=== PATIENT | female | born 1965 | race Caucasian/White ===

== ENCOUNTER 2020-08-18 14:42 | Observation (INO) | payer BC, OTHER ==
[~2020-08-18] VITALS: Ht 154.9 cm; Wt 147.0 kg
[~2020-08-18 14:42] MED LIST: MORPHINE SULFATE 4 MG/ML VIAL. IV PRN
--- NOTE | 2020-08-18 15:26 | ED.ADGEN ---
General Adult EDM: Chief Complaint: SHORTNESS OF BREATH HPI: HPI: Patient is a 55 year old female, brought to the emergency department by EMS with complaints of chest pain for the last 3 weeks and intermittent shortness of breath for the last week. Patient also complains of pain in her right ear, she states that there is a growth in her ear that cannot be removed. Patient reports frustrations with the facility where she currently resides, she states that she has to take off her oxygen and going to the hallway to get anyone to come to her. Patient states that she has had a growth in her ear that they refused to do anything about. She denies any fever, cough, body aches, chills, sore throat, headaches, dizziness, or syncope. Patient reports that the chest pain radiates to her left shoulder at times she currently denies any chest pain. She reports that the pain in her right ear is a 10 out of 10 on the pain scale she states that it hurts worse if the growth is palpated. 1515- Per conversation with Tatum Orozco RN at [facility] pt has been complaining of R ear pain x 1 week. She was evaluated and prescribed debrox by [facility] at the shelter yesterday. Pt used her own cell phone to call EMS today and complained of CP for one week to EMS. Per Tatum the patient had not reported CP until EMS was called. Tatum CLARK will fax over pt's medication list, she is currently taking 20 mg of xarelto once daily no other blood thinners. Review of Systems: Review of Systems: Complete ROS is negative unless otherwise noted in HPI. Current Medications: Current Medications Medications (Trade) Dose Ordered Sig/[facility] Start Time Stop Time Status Last Admin Dose Admin Morphine Sulfate (Morphine Sulfate) 2 mg PRN Q2HR PRN 08/18/20 04:00 08/19/20 03:59 08/18/20 18:30 2 MG Ondansetron HCl (Zofran) 4 mg 1X ONCE 08/18/20 16:30 08/18/20 16:31 DC 08/18/20 18:03 4 MG Allergies: Allergies: Allergies Coded Allergies Type Severity Reaction Last Updated Verified lisinopril Allergy Unknown Swelling 08/18/20 Yes Physical Exam: PE: See Above Constitutional: Well developed, well nourished, no acute distress, non-toxic appearance, morbidly obese. [] HENT: Normocephalic, atraumatic, bilateral external ears normal, oropharynx moist, no oral exudates, nose normal; cerumen impaction of the right ear canal. [] Eyes: PERRLA, EOMI, conjunctiva normal, no discharge. [] Neck: Normal range of motion, no stridor. [] Cardiovascular:Heart rate regular rhythm Lungs & Thorax: Respirations even and unlabored, no retractions, no respiratory distress Abdomen: soft, no tenderness Skin: Warm, dry, no erythema, no rash. [] Extremities: BLE: Lymphedema present bilaterally, no cyanosis, ROM intact Neurologic: Alert and oriented X 3, normal motor function, normal sensory function, no focal deficits noted. [] Psychologic: Affect normal, judgement normal, mood normal. [] Current Patient Data: Labs: Laboratory Tests Test 08/18/20 15:17 08/18/20 15:20 Urine Collection Type Unknown Urine Color Straw Urine Clarity Clear Urine pH 7.5 (<5.0-8.0) Urine Specific [place] 1.010 (1.000-1.030) Urine Protein Negative mg/dL (NEG-TRACE) Urine Glucose (UA) Negative mg/dL (NEG) Urine Ketones (Stick) Negative mg/dL (NEG) Urine Blood Negative (NEG) Urine Nitrite Negative (NEG) Urine Bilirubin Negative (NEG) Urine Urobilinogen Dipstick 0.2 mg/dL (0.2 mg/dL) Urine Leukocyte Esterase Trace (NEG) Urine RBC 0 /HPF (0-2) Urine WBC Occ /HPF (0-4) Urine Squamous Epithelial Cells Many /LPF Urine Bacteria Moderate /HPF (0-FEW) White Blood Count 6.0 x10^3/uL (4.0-11.0) Red Blood Count 3.74 x10^6/uL (3.50-5.40) Hemoglobin 10.5 g/dL (12.0-15.5) L Hematocrit 32.3 % (36.0-47.0) L Mean Corpuscular Volume 86 fL (79-100) Mean Corpuscular Hemoglobin 28 pg (25-35) Mean Corpuscular Hemoglobin Concent 33 g/dL (31-37) Red Cell Distribution Width 16.2 % (11.5-14.5) H Platelet Count 265 x10^3/uL (140-400) Neutrophils (%) (Auto) 72 % (31-73) Lymphocytes (%) (Auto) 19 % (24-48) L Monocytes (%) (Auto) 8 % (0-9) Eosinophils (%) (Auto) 2 % (0-3) Basophils (%) (Auto) 0 % (0-3) Neutrophils # (Auto) 4.3 x10^3/uL (1.8-7.7) Lymphocytes # (Auto) 1.1 x10^3/uL (1.0-4.8) Monocytes # (Auto) 0.4 x10^3/uL (0.0-1.1) Eosinophils # (Auto) 0.1 x10^3/uL (0.0-0.7) Basophils # (Auto) 0.0 x10^3/uL (0.0-0.2) Sodium Level 141 mmol/L (136-145) Potassium Level 3.9 mmol/L (3.5-5.1) Chloride Level 98 mmol/L (98-107) Carbon Dioxide Level 40 mmol/L (21-32) H Anion Gap 3 (6-14) L Blood Urea Nitrogen 16 mg/dL (7-20) Creatinine 0.9 mg/dL (0.6-1.0) Estimated GFR (Cockcroft-Gault) 64.8 BUN/Creatinine Ratio 18 (6-20) Glucose Level 131 mg/dL (70-99) H Calcium Level 9.1 mg/dL (8.5-10.1) Magnesium Level 2.0 mg/dL (1.8-2.4) Total Bilirubin 0.3 mg/dL (0.2-1.0) Aspartate Amino Transferase (AST) 12 U/L (15-37) L Alanine Aminotransferase (ALT) 21 U/L (14-59) Alkaline Phosphatase 96 U/L (46-116) Creatine Kinase 44 U/L (26-192) Creatine Kinase MB (Mass) < 0.5 ng/mL (0.0-3.6) Creatine Kinase MB Relative Index % (0-4) Troponin I Quantitative < 0.017 ng/mL (0.000-0.055) OB-Jzx-U-Type Natriuretic Peptide 613 pg/mL (0-124) H Total Protein 8.7 g/dL (6.4-8.2) H Albumin 3.5 g/dL (3.4-5.0) Albumin/Globulin Ratio 0.7 (1.0-1.7) L Lipase 87 U/L (73-393) Laboratory Tests 08/18/20 15:20 Laboratory Tests 08/18/20 15:20 Vital Signs: Vital Signs Date Time Temp Pulse Resp B/P (MAP) Pulse Ox O2 Delivery O2 Flow Rate FiO2 08/18/20 14:45 97.6 71 20 170/74 (106) 97 Nasal Cannula 2.0 97.6 EKG: EK-sinus rhythm, rate 69, T wave abnormality in the high lateral leads, prolonged QT, no STEMI, read by Dr. Gary [] Heart Score: C/O Chest Pain: Yes HEART Score for Chest Pain: HEART Score for Chest Pain Response (Comments) Value History Slighlty/Non-Suspicious 0 ECG Nonspecific Repolarizatio 1 Age >45 - < 65 1 Risk Factors >3 Risk Factors or Hx CAD 2 Troponin < Normal Limit 0 Total 4 Risk Factors: Risk Factors: DM, Current or recent (<one month) smoker, HTN, HLP, family history of CAD, obesity. Risk Scores: Score 0 - 3: 2.5% MACE over next 6 weeks - Discharge Home Score 4 - 6: 20.3% MACE over next 6 weeks - Admit for Clinical Observation Score 7 - 10: 72.7% MACE over next 6 weeks - Early Invasive Strategies Radiology/Procedures: Radiology/Procedures: PROCEDURE: CHEST AP ONLY Exam Date: 08/18/2020 3:45 PM XR CHEST 1V Indication: Reason: chest pain / Spl. Instructions: / History: FINDINGS/ IMPRESSION: The cardiac silhouette is enlarged. Pulmonary vasculature prominence and mildly increased interstitial markings suggest mild congestion. Left basilar opacity is likely secondary to prominent pericardial fat pad, the left basilar atelectasis and or infiltrate is not excluded. There is no appreciable pleural effusion or pneumothorax. Electronically signed by: Frankie Simons MD (08/18/2020 4:11 PM) [facility] Course & Med Decision Making: Course & Med Decision Making Pertinent Labs and Imaging studies reviewed. (See chart for details) [id number] with Dr. Dallas who is the admitting physician, and care was assumed following discussion of patient. Will admit patient as observation for chest pain or shortness of breath. Will initiate the chest pain order set. Patient's vital signs stable. Patient remains afebrile, appears nontoxic, respirations even and unlabored. Patient will be admitted to the cvc floor. Patient's case and plan of care also discussed with Dr. Gary [] Tanvi Disclaimer: Tanvi Disclaimer: This electronic medical record was generated, in whole or in part, using a voice recognition dictation system. Departure Departure Impression: Primary Impression: Chest pain Additional Impressions: Shortness of breath Impacted cerumen of right ear Disposition: ADMITTED INPT THIS HOSP Admitting Physician: YAJAIRA PENDLETON) Condition: STABLE Problem Qualifiers Primary Impression: Chest pain Chest pain type: unspecified Qualified Codes: R07.9 - Chest pain, unspecified DAQUAN GIBBONS APRN Aug 18, 2020 15:26
[2020-08-18 15:28] LABS: BILIRUBIN,URINE NEGATIVE (NEG); CLARITY,URINE CLEAR; NITRITE,URINE NEGATIVE (NEG); PH,URINE 7.5 (<5.0-8.0); PROTEIN,URINE NEGATIVE (NEG-TRACE); UROBILINOGEN,URINE 0.2 mg/dL (0.2 mg/dL)
[2020-08-18 15:38] LABS: BACTERIA,URINE MODERATE /HPF (0-FEW)
[2020-08-18 15:39] LABS: RBC,URINE 0 /HPF (0-2); WBC,URINE OCC /HPF (0-4)
[2020-08-18 15:40] LABS: COLOR,URINE STRAW
[2020-08-18 15:49] LABS: BASO % 0 % (0-3); EOS # 0.1 x10^3/uL (0.0-0.7); EOS % 2 % (0-3); HEMATOCRIT 32.3 % (36.0-47.0); HEMOGLOBIN 10.5 g/dL (12.0-15.5); LYMPH # 1.1 x10^3/uL (1.0-4.8); LYMPH % 19 % (24-48); MEAN CORPUSCULAR HEMOGLOBIN 28 pg (25-35); MEAN CORPUSCULAR HGB CONC 33 g/dL (31-37); MEAN CORPUSCULAR VOLUME 86 fL (79-100); MONO # 0.4 x10^3/uL (0.0-1.1); MONO % 8 % (0-9); NEUT # 4.3 x10^3/uL (1.8-7.7); NEUT % 72 % (31-73); PLATELET COUNT 265 x10^3/uL (140-400); RED BLOOD COUNT 3.74 x10^6/uL (3.50-5.40); RED CELL DISTRIBUTION WIDTH 16.2 % (11.5-14.5)
[2020-08-18 15:56] LABS: CALCIUM 9.1 mg/dL (8.5-10.1); CREATININE 0.9 mg/dL (0.6-1.0); GFR 64.8; POTASSIUM 3.9 mmol/L (3.5-5.1)
[2020-08-18 16:02] LABS: ALBUMIN 3.5 g/dL (3.4-5.0); ALBUMIN/GLOBULIN RATIO 0.7 (1.0-1.7); TOTAL BILIRUBIN 0.3 mg/dL (0.2-1.0); TOTAL PROTEIN 8.7 g/dL (6.4-8.2)
[2020-08-18 16:14] LABS: CREATINE KINASE 44 U/L (26-192)
--- NOTE | 2020-08-18 16:14 | RAD ---
Exam Date: 08/18/2020 3:45 PM XR CHEST 1V Indication: Reason: chest pain / Spl. Instructions: / History: FINDINGS/ IMPRESSION: The cardiac silhouette is enlarged. Pulmonary vasculature prominence and mildly increased interstitia l markings suggest mild congestion. Left basilar opacity is likely secondary to prominent pericardial fat pad, the left basilar atelectasis and or infiltrate is not excluded. There is no appreciable pleural effusion or pneumothorax. Electronically signed by: Frankie Simons MD (08/18/2020 4:11 PM) [facility]
[2020-08-18] MEDS ORDERED: ONDANSETRON PF 4 MG/2 ML VIAL. IV ONE (16:30)
[2020-08-18] MEDS ORDERED: MORPHINE SULFATE 4 MG/ML VIAL. IV ONE (16:30)
--- NOTE | 2020-08-18 16:52 | PDOC1 ---
History and Physical Date of Service: DOS: DATE: 08/18/20 TIME: 16:50 Chief Complaint: Chief Complain: Chest pressure and shortness of breath History of Present Illness: HPI: Patient is a 55-year-old female with past medical history of diabetes mellitus, CHF with unknown EF, COPD, morbid obesity who presents to the ED after she called from her cell phone EMS today because she was having chest pain as she felt the staff was ignoring her. She does reside at [facility] and rehab. She also has been complaining of right ear pain for 1 week in which she was given eardrop. In the ED patient did have a cerumen impaction removal that was completed. According to the patient she is taking Xarelto, Metformin, glyburide, Coreg and atorvastatin. She describes the chest pain as sharp in nature and last for about 5 minutes at a time and does travel to her left arm in which she also complains of left arm pain. She does describe shortness of breath and a cough that is nonproductive. Denies fevers, nausea vomiting, loss of appetite, weight loss, abdominal pain, diarrhea or bloody stools. Past Medical/Surgical History: PMH/PSH: Past medical history: Diabetes, COPD, CHF Past surgical history: Unknown Allergies: Allergies: Coded Allergies: lisinopril (Verified Allergy, Unknown, Swelling, 08/18/20) Family History: Family History: Reviewed with no relevant findings Social History: Social History: Former smoker. Currently denies any alcohol or drug abuse Current Medications: Current Medications Current Medications Ondansetron HCl (Zofran) 4 mg 1X ONCE IV ; Start 08/18/20 at 16:30; Stop at 16:31; Status DC Morphine Sulfate (Morphine Sulfate) 4 mg 1X ONCE IV ; Start 08/18/20 at 16:30; Stop 08/18/20 at 16:31; Status DC ROS: Review of Systems Review of System REVIEW OF SYSTEMS: GENERAL: Denies weakness SKIN: No bruising, hair changes or rashes. EYES: No blurred, double or loss of vision. NOSE AND THROAT: No history of nosebleeds, hoarseness or sore throat. HEART: No history of palpitations, chest pain or shortness of breath on exertion. LUNGS: Denies cough, hemoptysis, wheezing or shortness of breath. GASTROINTESTINAL: Denies changes in appetite, nausea, vomiting, diarrhea or constipation. GENITOURINARY: No history of frequency, urgency, hesitancy or nocturia. NEUROLOGIC: Denies history of numbness, tingling, or tremor. PSYCHIATRIC: No history of panic, anxiety or depression. ENDOCRINE: No history of heat or cold intolerance, polyuria or polydipsia. EXTREMITIES: Denies joint pain, pain on walking or stiffness. Physical Exam: Physcial Exam: GEN: No apparent distress. Alert and oriented HEENT: Normal cephalic, atraumatic, external auditory canals are patent EYES: Extraocular muscles are intact, pupil are equally round and reactive to light and accommodation MUSCULOSKELETAL: Well developed , well nourished, good range of motion ENDOCRINE: No thyromegaly was palpated LYMPHATICS: No cervical chain or axillary nodes were noted HEMATOPOIETIC: No bruising NECK: Supple, no JVD, no thyromegaly was noted LUNGS: Expiratory wheezing bilaterally HEART: RRR, S!, S2 present. Peripheral pulses intact, no obvious murmurs noted ABDOMEN: Soft, nontender. Positive bowel sounds, no organomegaly, normal bowel sounds EXTREMITIES: Bilateral nonpitting edema. Bilateral lower extremity lymphedema NEUROLOGIC: Normal speech and tone. A&O x 3, moves all extremities, no obvious focal deficits PSYCHIATRIC: Normal affect, normal mood. Stable SKIN: No ulcerations or rashes, good skin turgor, no jaundice VASCULAR: Good capillary refill, neurovascular bundle appears to be intact Labs: Labs: Laboratory Tests Test 08/18/20 15:17 08/18/20 15:20 Urine Collection Type Unknown Urine Color Straw Urine Clarity Clear Urine pH 7.5 (<5.0-8.0) Urine Specific [place] 1.010 (1.000-1.030) Urine Protein Negative mg/dL (NEG-TRACE) Urine Glucose (UA) Negative mg/dL (NEG) Urine Ketones (Stick) Negative mg/dL (NEG) Urine Blood Negative (NEG) Urine Nitrite Negative (NEG) Urine Bilirubin Negative (NEG) Urine Urobilinogen Dipstick 0.2 mg/dL (0.2 mg/dL) Urine Leukocyte Esterase Trace (NEG) Urine RBC 0 /HPF (0-2) Urine WBC Occ /HPF (0-4) Urine Squamous Epithelial Cells Many /LPF Urine Bacteria Moderate /HPF (0-FEW) White Blood Count 6.0 x10^3/uL (4.0-11.0) Red Blood Count 3.74 x10^6/uL (3.50-5.40) Hemoglobin 10.5 g/dL (12.0-15.5) Hematocrit 32.3 % (36.0-47.0) Mean Corpuscular Volume 86 fL (79-100) Mean Corpuscular Hemoglobin 28 pg (25-35) Mean Corpuscular Hemoglobin Concent 33 g/dL (31-37) Red Cell Distribution Width 16.2 % (11.5-14.5) Platelet Count 265 x10^3/uL (140-400) Neutrophils (%) (Auto) 72 % (31-73) Lymphocytes (%) (Auto) 19 % (24-48) Monocytes (%) (Auto) 8 % (0-9) Eosinophils (%) (Auto) 2 % (0-3) Basophils (%) (Auto) 0 % (0-3) Neutrophils # (Auto) 4.3 x10^3/uL (1.8-7.7) Lymphocytes # (Auto) 1.1 x10^3/uL (1.0-4.8) Monocytes # (Auto) 0.4 x10^3/uL (0.0-1.1) Eosinophils # (Auto) 0.1 x10^3/uL (0.0-0.7) Basophils # (Auto) 0.0 x10^3/uL (0.0-0.2) Sodium Level 141 mmol/L (136-145) Potassium Level 3.9 mmol/L (3.5-5.1) Chloride Level 98 mmol/L (98-107) Carbon Dioxide Level 40 mmol/L (21-32) Anion Gap 3 (6-14) Blood Urea Nitrogen 16 mg/dL (7-20) Creatinine 0.9 mg/dL (0.6-1.0) Estimated GFR (Cockcroft-Gault) 64.8 BUN/Creatinine Ratio 18 (6-20) Glucose Level 131 mg/dL (70-99) Calcium Level 9.1 mg/dL (8.5-10.1) Magnesium Level 2.0 mg/dL (1.8-2.4) Total Bilirubin 0.3 mg/dL (0.2-1.0) Aspartate Amino Transf (AST/SGOT) 12 U/L (15-37) Alanine Aminotransferase (ALT/SGPT) 21 U/L (14-59) Alkaline Phosphatase 96 U/L (46-116) Creatine Kinase 44 U/L (26-192) Creatine Kinase MB (Mass) < 0.5 ng/mL (0.0-3.6) Creatine Kinase MB Relative Index % (0-4) Troponin I Quantitative < 0.017 ng/mL (0.000-0.055) SN-Rzl-H-Type Natriuretic Peptide 613 pg/mL (0-124) Total Protein 8.7 g/dL (6.4-8.2) Albumin 3.5 g/dL (3.4-5.0) Albumin/Globulin Ratio 0.7 (1.0-1.7) Lipase 87 U/L (73-393) Laboratory Tests Test 08/18/20 15:17 08/18/20 15:20 Urine Collection Type Unknown Urine Color Straw Urine Clarity Clear Urine pH 7.5 (<5.0-8.0) Urine Specific [place] 1.010 (1.000-1.030) Urine Protein Negative mg/dL (NEG-TRACE) Urine Glucose (UA) Negative mg/dL (NEG) Urine Ketones (Stick) Negative mg/dL (NEG) Urine Blood Negative (NEG) Urine Nitrite Negative (NEG) Urine Bilirubin Negative (NEG) Urine Urobilinogen Dipstick 0.2 mg/dL (0.2 mg/dL) Urine Leukocyte Esterase Trace (NEG) Urine RBC 0 /HPF (0-2) Urine WBC Occ /HPF (0-4) Urine Squamous Epithelial Cells Many /LPF Urine Bacteria Moderate /HPF (0-FEW) White Blood Count 6.0 x10^3/uL (4.0-11.0) Red Blood Count 3.74 x10^6/uL (3.50-5.40) Hemoglobin 10.5 g/dL (12.0-15.5) Hematocrit 32.3 % (36.0-47.0) Mean Corpuscular Volume 86 fL (79-100) Mean Corpuscular Hemoglobin 28 pg (25-35) Mean Corpuscular Hemoglobin Concent 33 g/dL (31-37) Red Cell Distribution Width 16.2 % (11.5-14.5) Platelet Count 265 x10^3/uL (140-400) Neutrophils (%) (Auto) 72 % (31-73) Lymphocytes (%) (Auto) 19 % (24-48) Monocytes (%) (Auto) 8 % (0-9) Eosinophils (%) (Auto) 2 % (0-3) Basophils (%) (Auto) 0 % (0-3) Neutrophils # (Auto) 4.3 x10^3/uL (1.8-7.7) Lymphocytes # (Auto) 1.1 x10^3/uL (1.0-4.8) Monocytes # (Auto) 0.4 x10^3/uL (0.0-1.1) Eosinophils # (Auto) 0.1 x10^3/uL (0.0-0.7) Basophils # (Auto) 0.0 x10^3/uL (0.0-0.2) Sodium Level 141 mmol/L (136-145) Potassium Level 3.9 mmol/L (3.5-5.1) Chloride Level 98 mmol/L (98-107) Carbon Dioxide Level 40 mmol/L (21-32) Anion Gap 3 (6-14) Blood Urea Nitrogen 16 mg/dL (7-20) Creatinine 0.9 mg/dL (0.6-1.0) Estimated GFR (Cockcroft-Gault) 64.8 BUN/Creatinine Ratio 18 (6-20) Glucose Level 131 mg/dL (70-99) Calcium Level 9.1 mg/dL (8.5-10.1) Magnesium Level 2.0 mg/dL (1.8-2.4) Total Bilirubin 0.3 mg/dL (0.2-1.0) Aspartate Amino Transf (AST/SGOT) 12 U/L (15-37) Alanine Aminotransferase (ALT/SGPT) 21 U/L (14-59) Alkaline Phosphatase 96 U/L (46-116) Creatine Kinase 44 U/L (26-192) Creatine Kinase MB (Mass) < 0.5 ng/mL (0.0-3.6) Creatine Kinase MB Relative Index % (0-4) Troponin I Quantitative < 0.017 ng/mL (0.000-0.055) DV-Osu-D-Type Natriuretic Peptide 613 pg/mL (0-124) Total Protein 8.7 g/dL (6.4-8.2) Albumin 3.5 g/dL (3.4-5.0) Albumin/Globulin Ratio 0.7 (1.0-1.7) Lipase 87 U/L (73-393) Images: Images CXR FINDINGS/ IMPRESSION: The cardiac silhouette is enlarged. Pulmonary vasculature prominence and mildly increased interstitial markings suggest mild congestion. Left basilar opacity is likely secondary to prominent pericardial fat pad, the left basilar atelectasis and or infiltrate is not excluded. There is no appreciable pleural effusion or pneumothorax. Assessment/Plan Assessment/Plan Chest pain concerning for unstable angina/NSTEMI Acute on chronic CHF exacerbation Anemia of chronic inflammation Morbid obesity History of diabetes mellitus History of CHF History of COPD Heart score of 4 Negative troponins and normal EKG Continue aspirin, Cardiology consulted Continue nitroglycerin as needed for pain Continue beta-priscila if blood pressures allow Continue high intensity statins IV morphine as needed Maintain O2 sats between 88 to 95% Trend troponins Repeat EKG in the a.m. Continue telemetry monitoring Monitor for electrolyte abnormalities Avoid NSAIDs IV Lasix x1 Thiamine supplementation Strict I's and O's Lovenox for DVT prophylaxis Protonix GI prophylaxis ADA diet Full code Discussed with RN and SW Disposition inpatient management as above Surrogate decision maker is Fidencio Roman Justifications for Admission Other Justification MICHELLE GASTON MD Aug 18, 2020 16:52
[2020-08-18] MEDS ORDERED: DOCUSATE SODIUM 100 MG CAPSULE. PO PRN (17:45)
[2020-08-18] MEDS ORDERED: FUROSEMIDE 40 MG/4 ML VIAL. IVP ONE (17:45)
[2020-08-18] MEDS ORDERED: MORPHINE SULFATE 2 MG/ML VIAL. IV PRN (17:45)
[2020-08-18] MEDS ORDERED: SENNOSIDES 8.6 MG TABLET PO PRN (17:45)
[2020-08-18] MEDS ORDERED: ONDANSETRON PF 4 MG/2 ML VIAL. IVP PRN (17:45)
[2020-08-18] MEDS ORDERED: DEXTROSE 50% 25 GM / 50ML DISP.SYRIN. IV PRN (17:45)
[2020-08-18] MEDS: ENOXAPARIN 40 MG/0.4 ML SYRINGE. SQ SCH (18:00)
[2020-08-18 19:15] VITALS: BP 170/82
[2020-08-18] MEDS ORDERED: RIVA20TA2 PO (22:14)
[2020-08-18] MEDS ORDERED: CARV25TA PO (22:14)
[2020-08-18] MEDS ORDERED: DIPH25TA64 PO (22:16)
[2020-08-18] MEDS ORDERED: CYCL10TA2 PO (22:19)
[2020-08-18] MEDS ORDERED: FERR325T14 PO (22:20)
[2020-08-18] MEDS ORDERED: HYDR-2869 PO (22:21)
[2020-08-18] MEDS ORDERED: POLY119P19 PO (22:21)
[2020-08-18] MEDS ORDERED: GLYB5TAB3 PO (22:21)
[2020-08-18] MEDS ORDERED: ACETAMINOPHEN 500 MG TABLET PO PRN (22:45)
[2020-08-18] MEDS: ACETAMINOPHEN 325 MG TABLET. PO PRN (22:48)
[2020-08-18] MEDS: diphenhydrAMINE HCL 25 MG CAPSULE PO PRN (22:48)
[2020-08-18 23:15] VITALS: BP 140/59
--- NOTE | 2020-08-18 23:47 | NUR ---
1950: Pt to floor via cart from ED department. Admission completed. Pt unable to state where her pharmacy is through [facility]. Paper work sent with patient says [facility] in [place], however it isn't open any longer. 2129: call to [facility] to ask about patients pharmacy no answer. 2299: Call to [facility] to ask about [facility]. no answer. message left. will continue to monitor.
--- NOTE | 2020-08-19 00:16 | EKG ---
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
--- NOTE | 2020-08-19 00:16 | EKG ---
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
[2020-08-19 03:23] VITALS: BP 119/61
[2020-08-19 07:10] LABS: BASO % 0 % (0-3); EOS # 0.1 x10^3/uL (0.0-0.7); EOS % 3 % (0-3); HEMATOCRIT 28.9 % (36.0-47.0); HEMOGLOBIN 9.3 g/dL (12.0-15.5); LYMPH # 1.3 x10^3/uL (1.0-4.8); LYMPH % 24 % (24-48); MEAN CORPUSCULAR HEMOGLOBIN 28 pg (25-35); MEAN CORPUSCULAR HGB CONC 32 g/dL (31-37); MEAN CORPUSCULAR VOLUME 87 fL (79-100); MONO # 0.5 x10^3/uL (0.0-1.1); MONO % 10 % (0-9); NEUT # 3.3 x10^3/uL (1.8-7.7); NEUT % 63 % (31-73); PLATELET COUNT 231 x10^3/uL (140-400); RED BLOOD COUNT 3.31 x10^6/uL (3.50-5.40); WHITE BLOOD COUNT 5.3 x10^3/uL (4.0-11.0)
[2020-08-19 07:34] LABS: CALCIUM 8.6 mg/dL (8.5-10.1); GFR 57.4; MAGNESIUM 2.1 mg/dL (1.8-2.4); PHOSPHORUS 5.7 mg/dL (2.6-4.7); POTASSIUM 3.9 mmol/L (3.5-5.1)
[2020-08-19 07:56] VITALS: BP 169/71
[2020-08-19] MEDS: INSULIN LISPRO 300 UNITS/3 ML VIAL. SQ SCH ×3 (08:00→17:00)
[2020-08-19] MEDS: ACETAMINOPHEN 325 MG TABLET. PO PRN (08:09)
[2020-08-19] MEDS: THIAMINE INJ 100 MG in IV DEXTROSE 5% 50 ML IV SCH (10:11)
[2020-08-19 10:20] VITALS: BP 125/53
--- NOTE | 2020-08-19 11:19 | PDOC ---
[employer] PROGRESS NOTE Date of Service DOS: DATE: 08/19/20 TIME: 11:17 Chief Complaint Chief Complaint Chest pain concerning for unstable angina/NSTEMI Acute on chronic CHF exacerbation Anemia of chronic inflammation Morbid obesity History of diabetes mellitus History of CHF History of COPD Heart score of 4 Negative troponins and normal EKG Continue aspirin, Cardiology consulted Continue nitroglycerin as needed for pain Continue beta-priscila if blood pressures allow Continue high intensity statins IV morphine as needed Maintain O2 sats between 88 to 95% Trend troponins Repeat EKG in the a.m. Continue telemetry monitoring Monitor for electrolyte abnormalities Avoid NSAIDs IV Lasix x1 Thiamine supplementation Strict I's and O's Lovenox for DVT prophylaxis Protonix GI prophylaxis ADA diet Full code Discussed with RN and SW Disposition inpatient management as above Surrogate decision maker is Fidencio Roman History of Present Illness History of Present Illness 08/19/2020 No acute events overnight. Patient saturating 98% on 2 L nasal cannula. Currently is chest pain-free. No concerns from nursing at this time. Patient's chart, labs, images were reviewed and discussed with RN 55-year-old female with past medical history of diabetes mellitus, CHF with unknown EF, COPD, morbid obesity who presents to the ED after she called from her cell phone EMS today because she was having chest pain as she felt the staff was ignoring her. She does reside at [facility]. She also has been complaining of right ear pain for 1 week in which she was given eardrop. In the ED patient did have a cerumen impaction removal that was completed. According to the patient she is taking Xarelto, Metformin, glyburide, Coreg and atorvastatin. She describes the chest pain as sharp in nature and last for about 5 minutes at a time and does travel to her left arm in which she also complains of left arm pain. She does describe shortness of breath and a cough that is nonproductive. Denies fevers, nausea vomiting, loss of appetite, weight loss, abdominal pain, diarrhea or bloody stools. Vitals/I&O Vitals/I&O: Vital Signs Date Time Temp Pulse Resp B/P (MAP) Pulse Ox O2 Delivery O2 Flow Rate FiO2 08/19/20 10:20 97.8 68 18 125/53 (77) 98 Nasal Cannula 2.0 97.8 I & O 308/18/20 08/19/20 15:00 23:00 07:00 Intake Total 60 ml 100 ml Output Total 850 ml Balance 60 ml -750 ml Labs Labs: Laboratory Tests Test 08/18/20 15:17 08/18/20 15:20 08/18/20 18:00 08/18/20 21:01 Urine Collection Type Unknown Urine Color Straw Urine Clarity Clear Urine pH 7.5 (<5.0-8.0) Urine Specific [employer] [facility] 1.010 (1.000-1.030) Urine Protein Negative mg/dL (NEG-TRACE) Urine Glucose (UA) Negative mg/dL (NEG) Urine Ketones (Stick) Negative mg/dL (NEG) Urine Blood Negative (NEG) Urine Nitrite Negative (NEG) Urine Bilirubin Negative (NEG) Urine Urobilinogen Dipstick 0.2 mg/dL (0.2 mg/dL) Urine Leukocyte Esterase Trace (NEG) Urine RBC 0 /HPF (0-2) Urine WBC Occ /HPF (0-4) Urine Squamous Epithelial Cells Many /LPF Urine Bacteria Moderate /HPF (0-FEW) White Blood Count 6.0 x10^3/uL (4.0-11.0) Red Blood Count 3.74 x10^6/uL (3.50-5.40) Hemoglobin 10.5 g/dL (12.0-15.5) Hematocrit 32.3 % (36.0-47.0) Mean Corpuscular Volume 86 fL (79-100) Mean Corpuscular Hemoglobin 28 pg (25-35) Mean Corpuscular Hemoglobin Concent 33 g/dL (31-37) Red Cell Distribution Width 16.2 % (11.5-14.5) Platelet Count 265 x10^3/uL (140-400) Neutrophils (%) (Auto) 72 % (31-73) Lymphocytes (%) (Auto) 19 % (24-48) Monocytes (%) (Auto) 8 % (0-9) Eosinophils (%) (Auto) 2 % (0-3) Basophils (%) (Auto) 0 % (0-3) Neutrophils # (Auto) 4.3 x10^3/uL (1.8-7.7) Lymphocytes # (Auto) 1.1 x10^3/uL (1.0-4.8) Monocytes # (Auto) 0.4 x10^3/uL (0.0-1.1) Eosinophils # (Auto) 0.1 x10^3/uL (0.0-0.7) Basophils # (Auto) 0.0 x10^3/uL (0.0-0.2) Sodium Level 141 mmol/L (136-145) Potassium Level 3.9 mmol/L (3.5-5.1) Chloride Level 98 mmol/L (98-107) Carbon Dioxide Level 40 mmol/L (21-32) Anion Gap 3 (6-14) Blood Urea Nitrogen 16 mg/dL (7-20) Creatinine 0.9 mg/dL (0.6-1.0) Estimated GFR (Cockcroft-Gault) 64.8 BUN/Creatinine Ratio 18 (6-20) Glucose Level 131 mg/dL (70-99) Calcium Level 9.1 mg/dL (8.5-10.1) Magnesium Level 2.0 mg/dL (1.8-2.4) Total Bilirubin 0.3 mg/dL (0.2-1.0) Aspartate Amino Transf (AST/SGOT) 12 U/L (15-37) Alanine Aminotransferase (ALT/SGPT) 21 U/L (14-59) Alkaline Phosphatase 96 U/L (46-116) Creatine Kinase 44 U/L (26-192) Creatine Kinase MB (Mass) < 0.5 ng/mL (0.0-3.6) Creatine Kinase MB Relative Index % (0-4) Troponin I Quantitative < 0.017 ng/mL (0.000-0.055) < 0.017 ng/mL (0.000-0.055) PU-Elv-H-Type Natriuretic Peptide 613 pg/mL (0-124) Total Protein 8.7 g/dL (6.4-8.2) Albumin 3.5 g/dL (3.4-5.0) Albumin/Globulin Ratio 0.7 (1.0-1.7) Lipase 87 U/L (73-393) Glucose (Fingerstick) 154 mg/dL (70-99) Test 08/19/20 00:40 08/19/20 06:25 Troponin I Quantitative < 0.017 ng/mL (0.000-0.055) < 0.017 ng/mL (0.000-0.055) White Blood Count 5.3 x10^3/uL (4.0-11.0) Red Blood Count 3.31 x10^6/uL (3.50-5.40) Hemoglobin 9.3 g/dL (12.0-15.5) Hematocrit 28.9 % (36.0-47.0) Mean Corpuscular Volume 87 fL (79-100) Mean Corpuscular Hemoglobin 28 pg (25-35) Mean Corpuscular Hemoglobin Concent 32 g/dL (31-37) Red Cell Distribution Width 16.0 % (11.5-14.5) Platelet Count 231 x10^3/uL (140-400) Neutrophils (%) (Auto) 63 % (31-73) Lymphocytes (%) (Auto) 24 % (24-48) Monocytes (%) (Auto) 10 % (0-9) Eosinophils (%) (Auto) 3 % (0-3) Basophils (%) (Auto) 0 % (0-3) Neutrophils # (Auto) 3.3 x10^3/uL (1.8-7.7) Lymphocytes # (Auto) 1.3 x10^3/uL (1.0-4.8) Monocytes # (Auto) 0.5 x10^3/uL (0.0-1.1) Eosinophils # (Auto) 0.1 x10^3/uL (0.0-0.7) Basophils # (Auto) 0.0 x10^3/uL (0.0-0.2) Sodium Level 143 mmol/L (136-145) Potassium Level 3.9 mmol/L (3.5-5.1) Chloride Level 101 mmol/L (98-107) Carbon Dioxide Level 42 mmol/L (21-32) Anion Gap 0 (6-14) Blood Urea Nitrogen 18 mg/dL (7-20) Creatinine 1.0 mg/dL (0.6-1.0) Estimated GFR (Cockcroft-Gault) 57.4 Glucose Level 118 mg/dL (70-99) Calcium Level 8.6 mg/dL (8.5-10.1) Phosphorus Level 5.7 mg/dL (2.6-4.7) Magnesium Level 2.1 mg/dL (1.8-2.4) Assessment and Plan Assessmemt and Plan Problems Medical Problems: (1) Chest pain Status: Acute (2) Impacted cerumen of right ear Status: Acute (3) Shortness of breath Status: Acute Comment Review of Relevant I have reviewed the following items olaf (where applicable) has been applied. Medications: Current Medications Medications (Trade) Dose Ordered Sig/Cameron Route PRN Reason Start Time Stop Time Status Last Admin Dose Admin Ondansetron HCl (Zofran) 4 mg 1X ONCE IV 08/18/20 16:30 08/18/20 16:31 DC 08/18/20 18:03 Morphine Sulfate (Morphine Sulfate) 4 mg 1X ONCE IV 08/18/20 16:30 08/18/20 16:31 DC 08/18/20 18:04 Acetaminophen (Tylenol) 650 mg PRN Q4HRS PRN PO TEMP > 100.4F/ MILD PAIN, 1ST 08/18/20 17:45 08/19/20 08:09 Thiamine HCl 100 mg/Dextrose 51 ml @ 102 mls/hr DAILY IV 08/19/20 09:00 08/19/20 10:11 Furosemide (Lasix) 40 mg 1X ONCE IVP 08/18/20 17:45 08/18/20 17:46 DC 08/18/20 18:31 Diphenhydramine HCl (Benadryl) 25 mg PRN QHS PRN PO INSOMNIA 08/18/20 22:45 08/18/20 22:48 Justifications for Admission Chest Pain Indications Respiratory Distress?: Yes Justification for admission: Patient's respiratory distress as indicated by (SOB/tachypnea/abnormal breathing pattern plus hypoxemia/AMS/other evidence of respiratory compromise such as pulmonary edema on chest x-ray) will need inpatient level of care. Other Justification MICHELLE GASTON MD Aug 19, 2020 11:19
--- NOTE | 2020-08-19 12:16 | PDOC2 ---
KEITHMIYA BELL PAULA 08/19/20 1216: CARDIAC CONSULT DATE OF CONSULT Date of Consult DATE: 08/19/20 TIME: 12:13 REASON FOR CONSULT Reason for Consult: Chest pain REFERRING PHYSICIAN Referring Physician: Nicki Cohen APRN HISTORY OF PRESENT ILLNESS HISTORY OF PRESENT ILLNESS This is a 55 yo female who presented secondary to earache and chest pain. Patient called EMS from room at nursing facility. Patient report she has been in and out of hospital and rehab facility since February due to lymphedema. Ability to ambulate has been very limited. She reports experiencing intermittent sharp, stabbing pains in the right chest for the last month or so. Also occasionally has squeezing in her central chest. No associated dizziness, diaphoresis, palpitations, or nausea/vomiting. Pain comes at rest and last varying time frame. Does resolved without intervention. She report having recent echocardiogram at [facility]. PAST MEDICAL HISTORY Cardiovascular: CHF, HTN, Hyperlipidemia Pulmonary: Other (PE) Endocrine: Diabetes PAST SURGICAL HISTORY Past Surgical History: Cholecystectomy, Colectomy FAMILY HISTORY Family History: Other (hypothyroidism ) SOCIAL HISTORY Smoke: Quit ALCOHOL: none Drugs: None Lives: Shelter CURRENT MEDICATIONS CURRENT MEDICATIONS Current Medications Medications (Trade) Dose Ordered Sig/Cameron Route PRN Reason Start Time Stop Time Status Last Admin Dose Admin Ondansetron HCl (Zofran) 4 mg 1X ONCE IV 08/18/20 16:30 08/18/20 16:31 DC 08/18/20 18:03 Morphine Sulfate (Morphine Sulfate) 4 mg 1X ONCE IV 08/18/20 16:30 08/18/20 16:31 DC 08/18/20 18:04 Acetaminophen (Tylenol) 650 mg PRN Q4HRS PRN PO TEMP > 100.4F/ MILD PAIN, 1ST 08/18/20 17:45 08/19/20 08:09 Thiamine HCl 100 mg/Dextrose 51 ml @ 102 mls/hr DAILY IV 08/19/20 09:00 08/19/20 10:11 Furosemide (Lasix) 40 mg 1X ONCE IVP 08/18/20 17:45 08/18/20 17:46 DC 08/18/20 18:31 Diphenhydramine HCl (Benadryl) 25 mg PRN QHS PRN PO INSOMNIA 08/18/20 22:45 08/18/20 22:48 ALLERGIES ALLERGIES: Coded Allergies: NSAIDS (Non-Steroidal Anti-Inflamma (Verified Allergy, Intermediate, 08/18/20) PT NOT SURE OF REACTION lisinopril (Verified Allergy, Intermediate, Swelling, 08/18/20) heparin (Verified Adverse Reaction, Mild, 08/18/20) "MAKES ARMS HURT" losartan (Verified Adverse Reaction, Mild, Diarrhea, 08/18/20) ROS Review of System 14 point ROS conducted with pertinent positives noted above in HPI PHYSICAL EXAM General: Alert, Oriented X3, Cooperative, No acute distress HEENT: Atraumatic Lungs: Other (diminished bases ) Heart: Regular rate, Normal S1, Normal S2 Abdomen: Soft, Other (obese ) Extremities: Other (chronic bilateral LE lymphedema ) Skin: No significant lesion Neuro: Normal speech, Sensation intact Psych/Mental Status: Mental status NL, Mood NL MUSCULOSKELETAL: Osteoarthritic changes both hands VITALS/I&O VITALS/I&O: Vital Signs Date Time Temp Pulse Resp B/P (MAP) Pulse Ox O2 Delivery O2 Flow Rate FiO2 08/19/20 10:20 97.8 68 18 125/53 (77) 98 Nasal Cannula 2.0 97.8 I & O 08/18/20 08/18/20 08/19/20 15:00 23:00 07:00 Intake Total 60 ml 100 ml Output Total 850 ml Balance 60 ml -750 ml LABS Lab: Laboratory Tests Test 08/18/20 15:17 08/18/20 15:20 08/18/20 18:00 08/18/20 21:01 Urine Collection Type Unknown Urine Color Straw Urine Clarity Clear Urine pH 7.5 (<5.0-8.0) Urine Specific [place] 1.010 (1.000-1.030) Urine Protein Negative mg/dL (NEG-TRACE) Urine Glucose (UA) Negative mg/dL (NEG) Urine Ketones (Stick) Negative mg/dL (NEG) Urine Blood Negative (NEG) Urine Nitrite Negative (NEG) Urine Bilirubin Negative (NEG) Urine Urobilinogen Dipstick 0.2 mg/dL (0.2 mg/dL) Urine Leukocyte Esterase Trace (NEG) Urine RBC 0 /HPF (0-2) Urine WBC Occ /HPF (0-4) Urine Squamous Epithelial Cells Many /LPF Urine Bacteria Moderate /HPF (0-FEW) White Blood Count 6.0 x10^3/uL (4.0-11.0) Red Blood Count 3.74 x10^6/uL (3.50-5.40) Hemoglobin 10.5 g/dL (12.0-15.5) L Hematocrit 32.3 % (36.0-47.0) L Mean Corpuscular Volume 86 fL (79-100) Mean Corpuscular Hemoglobin 28 pg (25-35) Mean Corpuscular Hemoglobin Concent 33 g/dL (31-37) Red Cell Distribution Width 16.2 % (11.5-14.5) H Platelet Count 265 x10^3/uL (140-400) Neutrophils (%) (Auto) 72 % (31-73) Lymphocytes (%) (Auto) 19 % (24-48) L Monocytes (%) (Auto) 8 % (0-9) Eosinophils (%) (Auto) 2 % (0-3) Basophils (%) (Auto) 0 % (0-3) Neutrophils # (Auto) 4.3 x10^3/uL (1.8-7.7) Lymphocytes # (Auto) 1.1 x10^3/uL (1.0-4.8) Monocytes # (Auto) 0.4 x10^3/uL (0.0-1.1) Eosinophils # (Auto) 0.1 x10^3/uL (0.0-0.7) Basophils # (Auto) 0.0 x10^3/uL (0.0-0.2) Sodium Level 141 mmol/L (136-145) Potassium Level 3.9 mmol/L (3.5-5.1) Chloride Level 98 mmol/L (98-107) Carbon Dioxide Level 40 mmol/L (21-32) H Anion Gap 3 (6-14) L Blood Urea Nitrogen 16 mg/dL (7-20) Creatinine 0.9 mg/dL (0.6-1.0) Estimated GFR (Cockcroft-Gault) 64.8 BUN/Creatinine Ratio 18 (6-20) Glucose Level 131 mg/dL (70-99) H Calcium Level 9.1 mg/dL (8.5-10.1) Magnesium Level 2.0 mg/dL (1.8-2.4) Total Bilirubin 0.3 mg/dL (0.2-1.0) Aspartate Amino Transferase (AST) 12 U/L (15-37) L Alanine Aminotransferase (ALT) 21 U/L (14-59) Alkaline Phosphatase 96 U/L (46-116) Creatine Kinase 44 U/L (26-192) Creatine Kinase MB (Mass) < 0.5 ng/mL (0.0-3.6) Creatine Kinase MB Relative Index % (0-4) Troponin I Quantitative < 0.017 ng/mL (0.000-0.055) < 0.017 ng/mL (0.000-0.055) [id number]-Ujj-[id number]-Type Natriuretic Peptide 613 pg/mL (0-124) H Total Protein 8.7 g/dL (6.4-8.2) H Albumin 3.5 g/dL (3.4-5.0) Albumin/Globulin Ratio 0.7 (1.0-1.7) L Lipase 87 U/L (73-393) Glucose (Fingerstick) 154 mg/dL (70-99) H Test 08/19/20 00:40 08/19/20 06:25 08/19/20 11:40 Troponin I Quantitative < 0.017 ng/mL (0.000-0.055) < 0.017 ng/mL (0.000-0.055) White Blood Count 5.3 x10^3/uL (4.0-11.0) Red Blood Count 3.31 x10^6/uL (3.50-5.40) L Hemoglobin 9.3 g/dL (12.0-15.5) L Hematocrit 28.9 % (36.0-47.0) L Mean Corpuscular Volume 87 fL (79-100) Mean Corpuscular Hemoglobin 28 pg (25-35) Mean Corpuscular Hemoglobin Concent 32 g/dL (31-37) Red Cell Distribution Width 16.0 % (11.5-14.5) H Platelet Count 231 x10^3/uL (140-400) Neutrophils (%) (Auto) 63 % (31-73) Lymphocytes (%) (Auto) 24 % (24-48) Monocytes (%) (Auto) 10 % (0-9) H Eosinophils (%) (Auto) 3 % (0-3) Basophils (%) (Auto) 0 % (0-3) Neutrophils # (Auto) 3.3 x10^3/uL (1.8-7.7) Lymphocytes # (Auto) 1.3 x10^3/uL (1.0-4.8) Monocytes # (Auto) 0.5 x10^3/uL (0.0-1.1) Eosinophils # (Auto) 0.1 x10^3/uL (0.0-0.7) Basophils # (Auto) 0.0 x10^3/uL (0.0-0.2) Sodium Level 143 mmol/L (136-145) Potassium Level 3.9 mmol/L (3.5-5.1) Chloride Level 101 mmol/L (98-107) Carbon Dioxide Level 42 mmol/L (21-32) H Anion Gap 0 (6-14) L Blood Urea Nitrogen 18 mg/dL (7-20) Creatinine 1.0 mg/dL (0.6-1.0) Estimated GFR (Cockcroft-Gault) 57.4 Glucose Level 118 mg/dL (70-99) H Calcium Level 8.6 mg/dL (8.5-10.1) Phosphorus Level 5.7 mg/dL (2.6-4.7) H Magnesium Level 2.1 mg/dL (1.8-2.4) Glucose (Fingerstick) 162 mg/dL (70-99) H Laboratory Tests 08/18/20 15:20 08/19/20 06:25 Laboratory Tests 08/18/20 15:20 08/19/20 06:25 ASSESSMENT/PLAN ASSESSMENT/PLAN 1. Chest pain, atypical. AMI ruled out. Reports recent cardiac w/u at [facility] 2. Mild acute on chronic probable diastolic CHF; s/p IV diuresis 3. Hypertension; controlled 4. Hyperlipidemia 5. Diabetes, II 6. H/o PE; chronic OAC with Xarelto 7. Chronic lymphedema 8. Morbid obesity Recommendations Resume BB Lasix therapy Obtain cardiac records for [facility] Check INR Supportive care Consider outpatient ischemic evaluation if none recently MELISA LEONARD MD 08/20/20 0548: CARDIAC CONSULT ASSESSMENT/PLAN ASSESSMENT/PLAN Late entry for 08/19/20 Pt. seen and examined. Agree with above CHIEF INVESTMENT OFFICER note. Supportive care. MIYA PARKER APRN 29, 2021 12:16 MELISA LEONARD MD Aug 20, 2020 05:48
[2020-08-19 12:51] LABS: PROTHROMBIN TIME PATIENT 12.5 SEC (11.7-14.0)
--- NOTE | 2020-08-19 14:17 | NUR ---
SS following for discharge planning. SS reviewed pt chart and discussed with pt RN. Pt is LT resident at [facility], ; fax [phone]. Pt is currently requiring oxygen at two liters nasal canula. COVID19 test pending. PT/OT ordered. PT recommended custodial unit. Cardiology consulted. SS will continue to follow for discharge planning.
[2020-08-19 14:18] VITALS: BP 124/59
[2020-08-19] MEDS ORDERED: POTASSIUM CHLORIDE 20 MEQ TABLET.ER. PO ONE (16:30)
[2020-08-19] MEDS ORDERED: FUROSEMIDE 40 MG/4 ML VIAL. IVP ONE ×2 (16:30→21:30)
[2020-08-19] MEDS: ENOXAPARIN 40 MG/0.4 ML SYRINGE. SQ SCH (17:49)
[2020-08-19] MEDS: CARVEDILOL 12.5 MG TABLET. PO SCH (18:21)
[2020-08-19 19:59] VITALS: BP 135/66
--- NOTE | 2020-08-19 20:00 | NUR ---
Flushed pts right AC IV, appeared slow to flush/positional but did slowing flush with NS. Upon administering IV lasix, pt became agitated, verbally abusive and demanded for the IV to be removed. PT currently refusing new IV, no scheduled IV medications in the future, will d/w physician POC.
[2020-08-19] MEDS ORDERED: CYCLOBENZAPRINE 10 MG TABLET. PO PRN (21:15)
[2020-08-19] MEDS ORDERED: CARBAMIDE PEROXIDE 6.5% OTIC SOLUTION 15ML BOTTLE. AD ONE (21:15)
[2020-08-19 22:53] VITALS: BP 113/60
[2020-08-20] MEDS: diphenhydrAMINE HCL 25 MG CAPSULE PO PRN (00:21)
[2020-08-20 02:52] VITALS: BP 118/50
[2020-08-20 06:35] VITALS: BP 122/54
[2020-08-20] MEDS: INSULIN LISPRO 300 UNITS/3 ML VIAL. SQ SCH ×3 (08:00→16:55)
[2020-08-20] MEDS: POLYETHYLENE GLYCOL 3350 17 GM PACKET. PO SCH (09:00)
[2020-08-20] MEDS: RIVAROXABAN 10 MG TABLET. PO SCH (09:00)
[2020-08-20] MEDS: THIAMINE INJ 100 MG in IV DEXTROSE 5% 50 ML IV SCH (09:00)
[2020-08-20] MEDS: glyBURIDE 5 MG TABLET PO SCH (09:24)
[2020-08-20] MEDS: CARVEDILOL 12.5 MG TABLET. PO SCH ×2 (09:25→18:00)
[2020-08-20] MEDS: FERROUS SULFATE 325 MG TABLET. PO SCH (09:25)
--- NOTE | 2020-08-20 10:09 | NUR ---
SS following up with discharge planning. SS reviewed pt chart and discussed with pt RN. Pt is LTC resident from [facility], ; fax [phone], and is currently requiring oxygen at two liters nasal canula. COVID19 test pending for placement. PT/OT recommended custodial unit. Anticipate discharge back to facility once COVID19 test has resulted. SS phoned and faxed clinical updates to [place]. SS will continue to follow for discharge planning.
--- NOTE | 2020-08-20 10:26 | PDOC ---
KEITH,MIYA PAULA 08/20/20 1026: CARDIO Progress Notes Date and Time Date of Service 08/20/20 Time of Evaluation 1245 Subjective Subjective: No shortness of breath, No Palpitations, Other (has occascional squeezing in her central chest) Vitals Vitals Vital Signs Date Time Temp Pulse Resp B/P (MAP) Pulse Ox O2 Delivery O2 Flow Rate FiO2 08/20/20 09:25 74 122/54 08/20/20 06:35 97.8 20 96 Nasal Cannula 2.0 97.8 Weight Weight [ ] Input and Output Intake and Output Intake and Output 08/20/20 06:59 Intake Total 1300 ml Output Total 1050 ml Balance 250 ml Intake Oral 1300 ml Output Urine Total 1050 ml # Bowel Movements 1 Laboratory Labs Laboratory Tests Test 08/19/20 11:40 08/19/20 17:14 08/19/20 20:43 08/20/20 08:13 Glucose (Fingerstick) 162 mg/dL (70-99) 158 mg/dL (70-99) 196 mg/dL (70-99) 145 mg/dL (70-99) Physical Exam HEENT: Neck Supple W Full Motion Chest: Symmetric LUNGS: Clear to Auscultation Heart: RRR Abdomen: Soft N/T, Other (obese) Extremities: Other (chronic bilateral LE lymphedema ) Neurology: alert, oriented, follow commands Assessment Assessment 1. Chest pain, atypical. AMI ruled out. Reports recent cardiac w/u at [facility] 2. Mild acute on chronic probable diastolic CHF; s/p IV diuresis. appears compensated 3. Hypertension; controlled 4. Hyperlipidemia 5. Diabetes, II 6. H/o PE; chronic OAC with Xarelto 7. Chronic lymphedema 8. Morbid obesity Recommendations Awaiting OSH records from [facility] Supportive care Consider outpatient ischemic evaluation if none recently Justicifation of Admission Dx: Justifications for Admission: Justification of Admission Dx: Yes Comments: acute on chronic probable diastolic CHF Chest pain MELISA LEONARD MD 08/21/20 0900: MIYA PARKER APRN Aug 20, 2020 10:26 MELISA LEONARD MD Aug 21, 2020 09:00
[2020-08-20 10:29] VITALS: BP 130/55
--- NOTE | 2020-08-20 11:40 | PDOC ---
[employer] PROGRESS NOTE Date of Service DOS: DATE: 08/20/20 TIME: 11:38 Chief Complaint Chief Complaint Chest pain concerning for unstable angina/NSTEMI Acute on chronic CHF exacerbation Anemia of chronic inflammation Morbid obesity History of diabetes mellitus History of CHF History of COPD Heart score of 4 Negative troponins and normal EKG Continue aspirin, Cardiology consulted Continue nitroglycerin as needed for pain Continue beta-priscila if blood pressures allow Continue high intensity statins IV morphine as needed Maintain O2 sats between 88 to 95% Trend troponins Repeat EKG in the a.m. Continue telemetry monitoring Monitor for electrolyte abnormalities Avoid NSAIDs IV Lasix x1 Thiamine supplementation Strict I's and O's Lovenox for DVT prophylaxis Protonix GI prophylaxis ADA diet Full code Discussed with RN and SW Disposition inpatient management as above Surrogate decision maker is Fidencio Roman History of Present Illness History of Present Illness 08/20/2020 No acute events overnight. Patient continues to be saturating well on 2 L nasal cannula. O2 pending for lymphedema treatment. Pending Covid test for returns to [place]. Cerumen impaction removal with hydrogen peroxide and warm water. Patient's chart, labs, images were reviewed and discussed with RN 08/19/2020 No acute events overnight. Patient saturating 98% on 2 L nasal cannula. Currently is chest pain-free. No concerns from nursing at this time. Patient's chart, labs, images were reviewed and discussed with RN 55-year-old female with past medical history of diabetes mellitus, CHF with unknown EF, COPD, morbid obesity who presents to the ED after she called from her cell phone EMS today because she was having chest pain as she felt the staff was ignoring her. She does reside at [facility]. She also has been complaining of right ear pain for 1 week in which she was given eardrop. In the ED patient did have a cerumen impaction removal that was completed. According to the patient she is taking Xarelto, Metformin, glyburid e, Coreg and atorvastatin. She describes the chest pain as sharp in nature and last for about 5 minutes at a time and does travel to her left arm in which she also complains of left arm pain. She does describe shortness of breath and a cough that is nonproductive. Denies fevers, nausea vomiting, loss of appetite, weight loss, abdominal pain, diarrhea or bloody stools. Vitals/I&O Vitals/I&O: Vital Signs Date Time Temp Pulse Resp B/P (MAP) Pulse Ox O2 Delivery O2 Flow Rate FiO2 08/20/20 10:29 98.0 80 130/55 (80) 97 Nasal Cannula 2.0 98.0 08/20/20 06:35 20 I & O 08/19/20 08/19/20 08/20/20 15:00 23:00 07:00 Intake Total 300 ml 800 ml 200 ml Output Total 500 ml 750 ml Balance 300 ml 300 ml -550 ml Physical Exam General: Alert, Oriented X3, Cooperative, No acute distress Heart: Regular rate, Normal S1, Normal S2 Abdomen: Soft, Other (obese ) Extremities: Other (chronic bilateral LE lymphedema ) Skin: No significant lesion Labs Labs: Laboratory Tests Test 08/19/20 11:40 08/19/20 17:14 08/19/20 20:43 08/20/20 08:13 Glucose (Fingerstick) 162 mg/dL (70-99) 158 mg/dL (70-99) 196 mg/dL (70-99) 145 mg/dL (70-99) Assessment and Plan Assessmemt and Plan Problems Medical Problems: (1) Chest pain Status: Acute (2) Impacted cerumen of right ear Status: Acute (3) Shortness of breath Status: Acute Comment Review of Relevant I have reviewed the following items olaf (where applicable) has been applied. Medications: Current Medications Medications (Trade) Dose Ordered Sig/Cameron Route PRN Reason Start Time Stop Time Status Last Admin Dose Admin Carvedilol (Coreg) 25 mg BIDWMEALS PO 08/19/20 17:00 08/20/20 09:25 Potassium Chloride (Klor-Con) 20 meq 1X ONCE PO 08/19/20 16:30 08/19/20 16:31 DC 08/19/20 18:21 Ferrous Sulfate (Feosol) 325 mg DAILY08 PO 08/20/20 08:00 08/20/20 09:25 Glyburide (Diabeta) 5 mg DAILY08 PO 08/20/20 08:00 08/20/20 09:24 Hydralazine HCl (Apresoline) 50 mg TID PO 08/19/20 21:15 08/20/20 09:24 Carbamide Peroxide (Debrox) 5 drop 1X ONCE AD 08/19/20 21:15 08/19/20 21:16 DC 08/19/20 21:35 Furosemide (Lasix) 40 mg 1X ONCE IVP 08/19/20 21:30 08/19/20 21:31 DC 08/19/20 21:35 Justifications for Admission Chest Pain Indications Respiratory Distress?: Yes Justification for admission: Patient's respiratory distress as indicated by (SOB/tachypnea/abnormal breathing pattern plus hypoxemia/AMS/other evidence of respiratory compromise such as pulmonary edema on chest x-ray) will need inpatient level of care. Other Justification MICHELLE GASTON MD Aug 20, 2020 11:40
[2020-08-20 14:40] VITALS: BP 131/55
[2020-08-20] MEDS: THIAMINE 100 MG TABLET. PO SCH (14:59)
--- NOTE | 2020-08-20 17:20 | SNU/HH DC ---
DISCHARGE ORDERS DISCHARGE INFORMATION: DISCHARGE DATE: Aug 20, 2020 FINAL DIAGNOSIS Problems Medical Problems: (1) Chest pain Status: Acute (2) Impacted cerumen of right ear Status: Acute (3) Shortness of breath Status: Acute CONDITION ON DISCHARGE: Guarded CODE STATUS: Code Status: Other (DNI) HALFWAY: SNF STAY <30 DAYS: Yes POST DISCHARGE ORDERS: DIET AFTER DISCHARGE: Cardiac FOLLOW-UP: PHYSICIAN FOLLOW-UP: PCP within 2 weeks of discharge ADDITIONAL FOLLOW-UP: Physician Office Nurse as needed LAB ORDERS FOR FOLLOW-UP: CBC, BMP TREATMENT/EQUIPMENT ORDERS: Physical Therapy For: Evalulation/Treatment Occupational Therapy For: Evaluation/Treatment DISCHARGE MEDICATIONS: Home Meds Reported Medications Hydralazine Hcl (HYDRALAZINE HCL) 50 Mg Tablet, 1 TAB PO TID, #90 TAB 5 Refills 08/18/20 Polyethylene Glycol 3350 (GLYCOLAX) 119 Gm Powder, 17 GM PO DAILY for const ipation, #527 GM 0 Refills Take according to instructions on printed sheet 08/18/20 Glyburide (GLYBURIDE) 5 Mg Tablet, 1 TAB PO DAILY, #60 TAB 5 Refills 08/18/20 Ferrous Sulfate (FERROUS SULFATE) 325 Mg Tablet, 1 TAB PO DAILY, #30 TAB 3 Refills 08/18/20 Cyclobenzaprine Hcl (CYCLOBENZAPRINE HCL) 10 Mg Tablet, 1 TAB PO BID PRN for MUSCLE SPASMS, #90 TAB 08/18/20 Diphenhydramine Hcl (BENADRYL ALLERGY) 25 Mg Tablet, 2 TAB PO Q8HRS PRN for ALLERGIES for 7 Days, #42 TAB 0 Refills 08/18/20 Carvedilol (COREG) 25 Mg Tablet, 25 MG PO BIDWMEALS for CARDIAC, TAB 08/18/20 Rivaroxaban (XARELTO) 20 Mg Tablet, 1 TAB PO DAILY for 30 Days, #30 TAB 0 R efills with food 08/18/20 MICHELLE GASTON MD Aug 20, 2020 17:20
[2020-08-20 19:14] VITALS: BP 128/49
[2020-08-20 22:31] VITALS: BP 114/51
--- NOTE | 2020-08-20 22:59 | NUR ---
Pt complained of chest pain with L arm numbness at 2230 to the [employer]EIGN [employer]IC. When this RN entered the room and inquired about cp with the patient, patient stated that the pain and numbness had "went away." 12 lead EKG showed T-wave abnormality in high lateral leads. Pt requests that her legs be put down on floor, she is sleeping in recliner. Pt states she breathes better with her legs on the floor. Will continue to monitor.
[2020-08-21] MEDS: diphenhydrAMINE HCL 25 MG CAPSULE PO PRN (00:25)
--- NOTE | 2020-08-21 02:08 | EKG ---
[facility] [address] [place] [address] Test Date: 2020-08-20 Test Time: 21:56:06 Pat Name: DANIELITO NUNES Department: Room: Gender: F Online Activist: SHANNON : 1965 Requested By: KEYONNA SNOWDEN Order Number: [id number] Reading MD: Measurements Intervals [place] Rate: 75 P: -90 PA: 108 QRS: -12 QRSD: 102 T: 88 QT: 448 QTc: 503 Interpretive Statements SINUS RHYTHM LEFTWARD AXIS R-S TRANSITION ZONE IN V LEADS DISPLACED TO THE LEFT T ABNORMALITY IN HIGH LATERAL LEADS PROLONGED QT ABNORMAL ECG RI6.01 Compared to ECG 08/18/2020 14:50:25 No significant changes
[2020-08-21 03:22] VITALS: BP 150/68
[2020-08-21 07:00] VITALS: BP 118/55
[2020-08-21] MEDS: INSULIN LISPRO 300 UNITS/3 ML VIAL. SQ SCH ×2 (08:00→12:00)
[2020-08-21] MEDS: glyBURIDE 5 MG TABLET PO SCH (08:38)
[2020-08-21] MEDS: THIAMINE 100 MG TABLET. PO SCH (08:38)
[2020-08-21] MEDS: FERROUS SULFATE 325 MG TABLET. PO SCH (08:38)
[2020-08-21] MEDS: CARVEDILOL 12.5 MG TABLET. PO SCH (08:39)
[2020-08-21] MEDS: POLYETHYLENE GLYCOL 3350 17 GM PACKET. PO SCH (08:40)
[2020-08-21] MEDS: RIVAROXABAN 10 MG TABLET. PO SCH (08:41)
--- NOTE | 2020-08-21 10:04 | PDOC ---
[employer] PROGRESS NOTE Date of Service DOS: DATE: 08/21/20 TIME: 10:00 Chief Complaint Chief Complaint Chest pain concerning for unstable angina/NSTEMI Acute on chronic CHF exacerbation Anemia of chronic inflammation Morbid obesity History of diabetes mellitus History of CHF History of COPD Heart score of 4 Negative troponins and normal EKG Continue aspirin, Cardiology consulted Continue nitroglycerin as needed for pain Continue beta-priscila if blood pressures allow Continue high intensity statins IV morphine as needed Maintain O2 sats between 88 to 95% Trend troponins Repeat EKG in the a.m. Continue telemetry monitoring Monitor for electrolyte abnormalities Avoid NSAIDs IV Lasix x1 Thiamine supplementation Strict I's and O's Lovenox for DVT prophylaxis Protonix GI prophylaxis ADA diet Full code Discussed with RN and SW Disposition inpatient management as above Surrogate decision maker is Fidencio Roman History of Present Illness History of Present Illness 08/21/2020 Patient seen and evaluated. No acute events overnight, denies fever. She denies any chest pain. Does report some continued right ear pain. She states that she is aware that she has cerumen impaction and has been discussed appropriate treatment for cerumen impaction. She has been recommended outpatient ischemic evaluation. Greater than 30 minutes was spent managing the discharge for this patient. 08/20/2020 No acute events overnight. Patient continues to be saturating well on 2 L nasal cannula. O2 pending for lymphedema treatment. Pending Covid test for returns to [place]. Cerumen impaction removal with hydrogen peroxide and warm water. Patient's chart, labs, images were reviewed and discussed with RN 08/19/2020 No acute events overnight. Patient saturating 98% on 2 L nasal cannula. Currently is chest pain-free. No concerns from nursing at this time. Patient's chart, labs, images were reviewed and discussed with RN 55-year-old female with past medical history of diabetes mellitus, CHF with unknown EF, COPD, morbid obesity who presents to the ED after she called from her cell phone EMS today because she was having chest pain as she felt the staff was ignoring her. She does reside at [facility]. She also has been complaining of right ear pain for 1 week in which she was given eardrop. In the ED patient did have a cerumen impaction removal that was completed. According to the patient she is taking Xarelto, Metformin, glyburide, Coreg and atorvastatin. She describes the chest pain as sharp in nature and last for about 5 minutes at a time and does travel to her left arm in which she also complains of left arm pain. She does describe shortness of breath and a cough that is nonproductive. Denies fevers, nausea vomiting, loss of appetite, weight loss, abdominal pain, diarrhea or bloody stools. Vitals/I&O Vitals/I&O: Vital Signs Date Time Temp Pulse Resp B/P (MAP) Pulse Ox O2 Delivery O2 Flow Rate FiO2 08/21/20 08:39 65 118/55 08/21/20 08:00 Nasal Cannula 2.0 08/21/20 07:00 98.5 16 94 98.5 I & O 08/20/20 08/20/20 08/21/20 15:00 23:00 07:00 Intake Total 240 ml 610 ml Output Total 600 ml 60 ml Balance 240 ml 10 ml -60 ml Physical Exam General: Alert, Oriented X3, Cooperative, No acute distress Heart: Regular rate, Normal S1, Normal S2 Lungs: Clear Abdomen: Soft, Other (obese ) Extremities: Other (chronic bilateral LE lymphedema ) Skin: No significant lesion Labs Labs: Laboratory Tests Test 08/20/20 11:52 08/20/20 16:51 08/20/20 20:42 08/21/20 07:04 Glucose (Fingerstick) 168 mg/dL (70-99) 113 mg/dL (70-99) 140 mg/dL (70-99) 132 mg/dL (70-99) Assessment and Plan Assessmemt and Plan Problems Medical Problems: (1) Chest pain Status: Acute (2) Impacted cerumen of right ear Status: Acute (3) Shortness of breath Status: Acute Comment Review of Relevant I have reviewed the following items olaf (where applicable) has been applied. Medications: Current Medications Medications (Trade) Dose Ordered Sig/Cameron Route PRN Reason Start Time Stop Time Status Last Admin Dose Admin Thiamine Mononitrate (Vitamin B-1) 100 mg DAILY PO 08/20/20 12:00 08/21/20 08:38 Justifications for Admission Chest Pain Indications Respiratory Distress?: Yes Justification for admission: Patient's respiratory distress as indicated by (SOB/tachypnea/abnormal breathing pattern plus hypoxemia/AMS/other evidence of respiratory compromise such as pulmonary edema on chest x-ray) will need inpatient level of care. Other Justification ELIAS FINLEY MD Aug 21, 2020 10:03
--- NOTE | 2020-08-21 10:06 | PDOC3 ---
Discharge Summary Visit Information Date of Admission: Aug 18, 2020 Date of Discharge: Aug 21, 2020 Final Diagnosis Problems Medical Problems: (1) Chest pain Status: Acute (2) Impacted cerumen of right ear Status: Acute (3) Shortness of breath Status: Acute Brief Hospital Course Allergies Allergies Coded Allergies Type Severity Reaction Last Updated Verified NSAIDS (Non-Steroidal Anti-Inflamma Allergy Intermediate 08/18/20 Yes lisinopril Allergy Intermediate Swelling 08/18/20 Yes heparin Adverse Reaction Mild 08/18/20 Yes losartan Adverse Reaction Mild Diarrhea 08/18/20 Yes Vital Signs Vital Signs Date Time Temp Pulse Resp B/P (MAP) Pulse Ox O2 Delivery O2 Flow Rate FiO2 08/21/20 08:39 65 118/55 08/21/20 08:00 Nasal Cannula 2.0 08/21/20 07:00 98.5 16 94 98.5 Lab Results Laboratory Tests Test 08/19/20 11:40 08/19/20 15:55 08/19/20 17:14 08/19/20 20:43 Glucose (Fingerstick) 162 mg/dL (70-99) 158 mg/dL (70-99) 196 mg/dL (70-99) Coronavirus (PCR) Not detected (Not Detected) Test 08/20/20 08:13 08/20/20 11:52 08/20/20 16:51 08/20/20 20:42 Glucose (Fingerstick) 145 mg/dL (70-99) 168 mg/dL (70-99) 113 mg/dL (70-99) 140 mg/dL (70-99) Test 08/21/20 07:04 Glucose (Fingerstick) 132 mg/dL (70-99) Laboratory Tests Test 08/20/20 11:52 08/20/20 16:51 08/20/20 20:42 08/21/20 07:04 Glucose (Fingerstick) 168 mg/dL (70-99) 113 mg/dL (70-99) 140 mg/dL (70-99) 132 mg/dL (70-99) Brief Hospital Course Ms. Roman is a 55 old female who presented with chest pain. Troponins were trended and undetectable. Consultation was placed to cardiology. She was recommended outpatient ischemic work-up. She also complained of right ear pain during her hospital course and noted to have cerumen impaction. She was recommended hydrogen peroxide and warm water for continued cerumen impaction. Discharge Information Condition at Discharge: Stable Follow Up: Weeks Disposition/Orders: D/C to Another Facility Scheduled Carvedilol (Coreg) 25 Mg Tablet, 25 MG PO BIDWMEALS for CARDIAC, (Reported) Entered as Reported by: Ginger Dewitt on 08/18/202213 Last Action: Converted on 08/19/201231 by MIYA PARKER APRN Ferrous Sulfate (Ferrous Sulfate) 325 Mg Tablet, 1 TAB PO DAILY, #30 Ref 3 (Reported) Entered as Reported by: Ginger Dewitt on 08/18/202219 Last Action: Continued on 08/19/202109 by CECIL ROSS MD Glyburide (Glyburide) 5 Mg Tablet, 1 TAB PO DAILY, #60 Ref 5 (Reported) Entered as Reported by: Ginger Dewitt on 08/18/202220 Last Action: Continued on 08/19/202109 by CECIL ROSS MD Hydralazine Hcl (Hydralazine Hcl) 50 Mg Tablet, 1 TAB PO TID, #90 Ref 5 (Reported) Entered as Reported by: Ginger Dewitt on 08/18/202220 Last Action: Continued on 08/19/202109 by CECIL ROSS MD Polyethylene Glycol 3350 (Glycolax) 119 Gm Powder, 17 GM PO DAILY for constipation, #527 Ref 0 (Reported) Take according to instructions on printed sheet Entered as Reported by: Ginger Dewitt on 08/18/202220 Last Action: Continued on 08/19/202109 by CECIL ROSS MD Rivaroxaban (Xarelto) 20 Mg Tablet, 1 TAB PO DAILY for 30 Days, #30 Ref 0 (Reported) with food Entered as Reported by: Ginger Dewitt on 08/18/202213 Last Action: Converted on 08/19/202109 by CECIL ROSS MD Scheduled PRN Cyclobenzaprine Hcl (Cyclobenzaprine Hcl) 10 Mg Tablet, 1 TAB PO BID PRN for MUSCLE SPASMS, #90 (Reported) Entered as Reported by: Ginger Dewitt on 08/18/202218 Last Action: Continued on 08/19/202109 by CECIL ROSS MD Diphenhydramine Hcl (Benadryl Allergy) 25 Mg Tablet, 2 TAB PO Q8HRS PRN for ALLERGIES for 7 Days, #42 Ref 0 (Reported) Entered as Reported by: Ginger Dewitt on 08/18/202215 Last Action: New Order on 08/18/202215 by Ginger Dewitt Justicifation of Admission Dx: Justifications for Admission: Justification of Admission Dx: Yes ELIAS FINLEY MD Aug 21, 2020 10:06
--- NOTE | 2020-08-21 10:18 | NUR ---
SS following up with discharge planning. SS reviewed pt chart and discussed with pt RN. Pt is LTC resident from [facility], ; fax [phone]. COVID19 negative. Pt is currently requiring oxygen at four liters nasal canula. PT/OT recommended jail unit. Discharge orders received. SS phoned and faxed discharge orders and updated clinical to [place]. [place] to contact SS with transportation time for return to facility. SS will continue to follow for discharge planning.
[2020-08-21 10:42] VITALS: BP 149/60
--- NOTE | 2020-08-21 11:24 | NUR ---
SS following up with discharge planning. SS received phone contact from [place], ; fax [phone], requesting that SS arrange [facility] ambulance for return to facility. Pt will discharge today and return to [place] at 1330 via [facility] ambulance. Pt, pt's RN, and pt's spouse notified.
--- NOTE | 2020-08-21 11:27 | PDOC ---
MIYA PARKER EXECUTIVE SECRETARY 08/21/20 1127: CARDIO Progress Notes Date and Time Date of Service 08/21/20 Time of Evaluation 1130 Subjective Subjective: No shortness of breath, No Palpitations, Other (still having occascional squeezing in her central chest) Vitals Vitals Vital Signs Date Time Temp Pulse Resp B/P (MAP) Pulse Ox O2 Delivery O2 Flow Rate FiO2 08/21/20 10:42 97.5 71 16 149/60 (89) 100 Nasal Cannula 4.0 97.5 Weight Weight [ ] Input and Output Intake and Output Intake and Output 08/21/20 06:57 Intake Total 850 ml Output Total 860 ml Balance -10 ml Intake Oral 850 ml Output Urine Total 860 ml # Voids 3 # Bowel Movements 1 Laboratory Labs Laboratory Tests Test 08/20/20 11:52 08/20/20 16:51 08/20/20 20:42 08/21/20 07:04 Glucose (Fingerstick) 168 mg/dL (70-99) 113 mg/dL (70-99) 140 mg/dL (70-99) 132 mg/dL (70-99) Test 08/21/20 11:08 Glucose (Fingerstick) 166 mg/dL (70-99) Microbiology Micro Microbiology 08/18/20 Urine Culture - Final, Complete 08/18/20 Antimicrobic Susceptibility - Final, Complete Physical Exam HEENT: Neck Supple W Full Motion Chest: Symmetric LUNGS: Clear to Auscultation Heart: RRR Abdomen: Soft N/T, Other (obese) Extremities: Other (chronic bilateral LE lymphedema ) Neurology: alert, oriented, follow commands Assessment Assessment 1. Chest pain, atypical. AMI ruled out. Reports recent cardiac w/u at [facility] 2. Mild acute on chronic probable diastolic CHF; s/p IV diuresis. appears compensated 3. Hypertension; controlled 4. Hyperlipidemia 5. Diabetes, II 6. H/o PE; chronic OAC with Xarelto 7. Chronic lymphedema 8. Morbid obesity Recommendations No OSH records received Will check echo to assess LV systolic function Supportive care Plan to discharge back to facility this afternoon. Justicifation of Admission Dx: Justifications for Admission: Justification of Admission Dx: Yes MELISA LEONARD MD 08/21/20 1429: CARDIO Progress Notes Plan Plan The patient was seen and interviewed as well as examined at the bedside. The chart was reviewed. The case was discussed. Agree with the plan of care. Echo with normal EF. MIYA PARKER APRN Aug 21, 2020 11:27 MELISA LEONARD MD Aug 21, 2020 14:29
[2020-08-21] MEDS ORDERED: PERFLUTREN PROTEIN-A MICROSPHR 0.22 MG/ML 3 ML VIAL. IV ONE ×2 (12:03→13:00)
--- NOTE | 2020-08-21 14:05 | NUR ---
Discharge Note: ADELSO NUNES Discharge instructions and discharge home medications reviewed with Other facility and a copy given. All questions have been answered and understanding verbalized. The following instructions and handouts were given: Chest pain Patient discharged to [facility] with EMS. Attemped to call report to [facility] on 3 different occasions, no answer. Will send packet of information with EMS.
--- NOTE | 2020-08-21 15:01 | CARD ---
MR#: [id number] Date of Study: 08/21/2020 Ordering Physician: MIYA PARKER, Referring Physician: MIYA PARKER, Tech: Lisa Dalmeaghanashlee, [facility] APPROVED REPORT EXAM: Two-dimensional and M-mode echocardiogram with Doppler and color Doppler. Other Information Quality : FairHR: 65bpm Technically limited study due to Obesity INDICATION Dyspnea Chest Pain 2D DIMENSIONS Left Atrium(2D)3.8 (1.6-4.0cm)IVSd1.3 (0.7-1.1cm) Aortic Root(2D)3.5 (2.0-3.7cm)LVDd6.6 (3.9-5.9cm) LVOT Diameter2.2 (1.8-2.4cm)PWd1.3 (0.7-1.1cm) LVDs3.1 (2.5-4.0cm)FS (%) 53.6 % SV189.8 mlLVEF(%)83.6 (>50%) Aortic Valve AoV Peak Stanford.147.1cm/sAoV VTI37.7cm AO Peak GR.8.7mmHgLVOT VTI 30.98cm AO Mean GR.5mmHg Mitral Valve MV E Rxkfwisz343.4cm/sMV DECEL [id number] MV A Ectzuktq11.8cm/sE/A Ratio1.4 TDI Lateral E' P. V9.07cm/sMedial E' P. V9.07cm/s E/Lateral E'11.7E/Medial E'11.7 Tricuspid Valve TR P. Fjzozjhq696zr/sRAP OUBTJQIO79gtKc TR Peak Gr.81zoShGFGP54blQx Pulmonary Vein S1 Smugtylw44.5cm/sS2 Pwurpvjg06.69cm/s D2 Sdteokdr65.7cm/sPVa wxekjwbh88xpuq LEFT VENTRICLE The left ventricle is normal size. There is moderate concentric left ventricular hypertrophy. The lef t ventricular systolic function is normal. EF 55% There is normal LV segmental wall motion. Tissue Do ppler imaging reveals moderate left ventricular diastolic dysfunction. RIGHT VENTRICLE The right ventricle is mildly dilated. There is normal right ventricular wall thickness. The right ve ntricular systolic function is normal. ATRIA The left atrium is mildly dilated. The right atrium is mildly dilated. The interatrial septum is inta ct with no evidence for an atrial septal defect or patent foramen ovale as noted on 2-D or Doppler im aging. AORTIC VALVE The aortic valve is normal in structure and function. Doppler and Color Flow revealed no significant aortic regurgitation. There is no significant aortic valvular stenosis. Calculated aortic valve area is 3.57 cm2 with maximum pressure gradient of 10 mmHg and mean pressure gradient of 5 mmHg. MITRAL VALVE The mitral valve is thickened but opens well. There is no evidence of mitral valve prolapse. There is no mitral valve stenosis. Doppler and Color-flow revealed trace mitral regurgitation. TRICUSPID VALVE The tricuspid valve is normal in structure and function. Doppler and Color Flow revealed trace tricus pid regurgitation with an estimated PAP of 56 mmHg. There is no tricuspid valve stenosis. PULMONIC VALVE The pulmonic valve is not well visualized. Doppler and Color Flow revealed no pulmonic valvular regur gitation. There is no pulmonic valvular stenosis. GREAT VESSELS The aortic root is normal in size. The ascending aorta is mildly dilated measuring 3.6 cm. The IVC is dilated and collapses <50% with inspiration. PERICARDIAL EFFUSION There is no evidence of significant pericardial effusion. Critical Notification Critical Value: No <Conclusion> The left ventricular systolic function is normal. EF 55% There is normal LV segmental wall motion. The ascending aorta is mildly dilated measuring 3.6 cm. The IVC is dilated and collapses <50% with inspiration. Signed by : Mendez Trujillo, Electronically Approved : 08/21/2020 15:00:35
== END 2020-08-21 14:37 ==
LOC: ER 14:42 → 2 NORTH 16:45
PROVIDERS: ADMIT Internal Medicine; ATTEND Internal Medicine
DX: R07.89 Other chest pain (principal); Z20.822 Contact with and (suspected) exposure to COVID-19; I11.0 Hypertensive heart disease with heart failure; I50.33 Acute on chronic diastolic (congestive) heart failure; H61.21 Impacted cerumen, right ear; D64.9 Anemia, unspecified; E11.9 Type 2 diabetes mellitus without complications; I89.0 Lymphedema, not elsewhere classified; J44.9 Chronic obstructive pulmonary disease, unspecified; E66.01 Morbid (severe) obesity due to excess calories; E78.5 Hyperlipidemia, unspecified; Z86.711 Personal history of pulmonary embolism; Z87.891 Personal history of nicotine dependence; Z90.49 Acquired absence of other specified parts of digestive tract; Z98.890 Other specified postprocedural states; Z79.82 Long term (current) use of aspirin; Z79.899 Other long term (current) drug therapy; Z68.44 Body mass index [BMI] 60.0-69.9, adult
CPT/HCPCS: 36415; 71045; 80048; 80053; 81001; 82553; 82962; 83690; 83735; 83880; 84100; 84484; 85025; 85610; 87086; 93005; 93306; 96365; 96366; 96372; 96375; 96376; 97116; 97162; 97166; 97530; 97535; 99285; G0378; J1815; J1940; J2270; J2405; J3411; J7060; Q0163; Q9956; U0003; U0005; G0379